=== PATIENT | female | born 1990 | race Caucasian/White ===

== ENCOUNTER 2022-03-18 13:03 | Outpatient (CLI) | payer OTHER, SELFPAY ==
--- NOTE | 2022-03-18 13:00 | CRLHL7_ITS ---
For Patients: As a result of the Century Cures Act, medical imaging exams and procedure reports are released immediately into your electronic medical record. You may view this report before your referring provider. If you have questions, please contact your health care provider. INDICATION: First trimester scan, establish dates. COMPARISON: None. TECHNIQUE: Real-time ulloa-scale imaging of the pelvis was performed. FINDINGS: Sonographic imaging demonstrates a single living intrauterine gestation. The embryo demonstrates a regular cardiac rate measuring 176 beats per minute. The embryo`s crown-rump length measurement of 2.3 cm corresponds to a gestational age of 9 weeks 0 days with a sonographic due date of 10/21/2022. There is a normal-appearing yolk sac. There are no gross abnormalities noted within the embryo at this early state of development. The gestational sac has a normal appearance. There is no evidence of a perigestational hemorrhage. The amount of fluid within the sac appears appropriate for gestational age. The cervix is closed. The myometrium appears normal. Small right paraovarian cyst is present measuring 1.6 x 1.5 x 1.5 cm. Left ovarian cyst is present measuring 5.6 x 4.1 x 4.9 cm. There are no suspicious fluid collections noted in the cul-de-sac. IMPRESSION: Single living intrauterine with sonographic gestational age 9 weeks 0 days and sonographic due date 10/21/2022. Dictated by Rob Campos MD @ 03/18/2022 1:58:33 PM (Electronically Signed)
== END 2022-03-18 13:04 | disposition home or self-care (01) ==
LOC: US 13:04
PROVIDERS: Visit Provider Advanced Practice Midwife
DX: Z34.91 Encounter for supervision of normal pregnancy, unspecified, first trimester (principal); O20.9 Hemorrhage in early pregnancy, unspecified; Z3A.09 9 weeks gestation of pregnancy
CPT/HCPCS: 76801; 76817; 86592; 86703; 86762; 86787; 86803; 86850; 86900; 86901; 87086; 87340; 87491; 87591

== ENCOUNTER 2022-04-15 16:09 | Outpatient (CLI) | payer OTHER, SELFPAY ==
--- NOTE | 2022-04-15 16:00 | CRLHL7_ITS ---
For Patients: As a result of the Century Cures Act, medical imaging exams and procedure reports are released immediately into your electronic medical record. You may view this report before your referring provider. If you have questions, please contact your health care provider. CLINICAL HISTORY: First trimester screening. TECHNIQUE: Real time ulloa scale imaging of the fetus was performed using a transabdominal approach. FINDINGS: Sonographic imaging demonstrates a single living intrauterine gestation. The fetus demonstrates a regular cardiac rate measuring 167 beats per minute. The crown rump length measurement of 7.7 cm corresponds to a gestation of 13 weeks 5 days. A nuchal translucency measurement of 2.1 mm was obtained for screening purposes. IMPRESSION: Nuchal translucency measurement obtained for first trimester screen. Dictated by Rob Campos MD @ 04/16/2022 9:48:08 AM (Electronically Signed)
== END 2022-04-15 16:10 | disposition home or self-care (01) ==
PROVIDERS: Visit Provider Obstetrics & Gynecology
DX: Z34.91 Encounter for supervision of normal pregnancy, unspecified, first trimester (principal); Z3A.12 12 weeks gestation of pregnancy
CPT/HCPCS: 36415; 76801; 76813; 84163; 84702

== ENCOUNTER 2022-06-13 13:57 | Outpatient (CLI) | payer OTHER, SELFPAY ==
--- NOTE | 2022-06-13 14:00 | CRLHL7_ITS ---
For Patients: As a result of the Century Cures Act, medical imaging exams and procedure reports are released immediately into your electronic medical record. You may view this report before your referring provider. If you have questions, please contact your health care provider. INDICATION: Evaluate anatomy. COMPARISON: 04/15/2022, 03/18/2022 TECHNIQUE: Real time ulloa scale imaging of the fetus was performed as well as color Doppler analysis of the umbilical vessels. FINDINGS: Sonographic imaging demonstrates a single living intrauterine gestation. Fetus demonstrates a regular cardiac rate of 147 beats per minute. Fetus has a transverse position, head maternal right. The placenta lies anteriorly without evidence of placenta previa. The head of the placenta is located 9.2 cm from the internal cervical os. Amniotic fluid volume appears normal. Single deepest vertical pocket: 5.8 cm. The cervix is closed and measures 4.9 cm in length. The composite ultrasound gestational age is calculated at 22 weeks 3 days with an estimated sonographic due date of 10/14/2022. The estimated weight is 516 grams which lies at the greater than 97th %. The following biometric measurements were obtained: Biparietal diameter: 5.3 cm/22 weeks 0 days 79th% Head circumference: 19.9 cm/22 weeks 1 day 80th% Abdominal circumference: 18.7 cm/23 weeks 3 days 97th% Femur length: 3.7 cm/21 weeks 4 days 58th% The HC/AC ratio measures: 1.06 range (1.05-1.22) On anatomic survey, there is a normal appearance of the cerebral ventricles, cavum septi pellucidi, cisterna magna and cerebellum. The nose, lips, and facial profile appear normal. The cervical, thoracic and lumbar spine are well visualized and appear normal. There is a normal four-chamber heart view and the left and right ventricular outflow tracts appear normal. The diaphragm and stomach appear normal. The kidneys and bladder also appear normal. There is a normal three-vessel cord and cord insertion site. The four extremities appear normal. IMPRESSION: Sonographic gestational age 22 weeks 3 days and sonographic due date 10/14/2022. Sonographic age 9 days ahead of the clinical age. Estimated weight greater than 97th percentile. Abdominal circumference 97th percentile. No intrinsic abnormalities noted on anatomic survey. Dictated by Rob Campos MD @ 06/14/2022 10:11:30 AM (Electronically Signed)
== END 2022-06-13 13:58 | disposition home or self-care (01) ==
LOC: US 13:58
PROVIDERS: Visit Provider Obstetrics & Gynecology
DX: Z34.92 Encounter for supervision of normal pregnancy, unspecified, second trimester (principal); Z3A.21 21 weeks gestation of pregnancy
CPT/HCPCS: 76805

== ENCOUNTER 2022-08-29 10:08 | Outpatient (CLI) | payer OTHER, SELFPAY ==
--- NOTE | 2022-08-29 10:15 | CRLHL7_ITS ---
For Patients: As a result of the Cures Act, medical imaging exams and procedure reports are released immediately into your electronic medical record. You may view this report before your referring provider. If you have questions, please contact your health care provider. INDICATION: Third trimester scan, evaluate growth. COMPARISON: June 13, 2022 TECHNIQUE: Real time ulloa scale imaging of the fetus was performed. FINDINGS: Sonographic imaging demonstrates a single living intrauterine gestation. Fetus demonstrates a regular cardiac rate of 145 beats per minute. Fetus has a vertex orientation and longitudinal lie. The placenta lies anteriorly without evidence of placenta previa. Amniotic fluid volume appears normal. Single deepest vertical pocket: 4.8 cm. The composite ultrasound gestational age is calculated at 33 weeks 2 days. The estimated weight is 2296 which lies at the 89 percentile. The biometric indices all lie within normal range. The HC/AC ratio measures 0.97 range (0.96-1.11). IMPRESSION: Single living intrauterine in vertex presentation. Composite calculated ultrasound age 33 weeks 2 days with a sonographic due date of October 15, 2022. Appropriate growth and maturation in the interval. Dictated by Az Barton MD @ 08/29/2022 11:19:02 AM (Electronically Signed)
== END 2022-08-29 10:09 | disposition home or self-care (01) ==
LOC: US 10:08
PROVIDERS: Visit Provider Obstetrics & Gynecology
DX: Z34.93 Encounter for supervision of normal pregnancy, unspecified, third trimester (principal); Z3A.33 33 weeks gestation of pregnancy
CPT/HCPCS: 76816

== ENCOUNTER 2022-09-27 10:47 | Outpatient (CLI) | payer OTHER, SELFPAY ==
[2022-09-28 18:55] LABS: Strep B DNA Probe NEGATIVE (Negative)
[2022-09-28 22:12] LABS: Strep B Pen/Amox Allergy No
== END 2022-09-27 10:48 | disposition home or self-care (01) ==
LOC: NFLDREF 10:47
PROVIDERS: Visit Provider Obstetrics & Gynecology
DX: Z34.93 Encounter for supervision of normal pregnancy, unspecified, third trimester (principal); Z3A.37 37 weeks gestation of pregnancy
CPT/HCPCS: 87081; 87653

== ENCOUNTER 2022-10-23 21:45 | Inpatient (IN) | payer OTHER, SELFPAY ==
[2022-10-23] VITALS (16 sets, daily range): BP systolic 112–154; BP diastolic 62–92; PULSE 94–127; RESP 16; TEMP 36.9; O2SAT 98–100; BMI 28.0
--- NOTE | 2022-10-23 22:21 | P.LDBA_ITS ---
Subjective History of Present Illness Date Seen: 10/23/22 Narrative: Patient is being admitted to Labor and Delivery for spontaneous onset of labor. She is a 32 year old at 40 weeks gestation. Her full history and physical was dictated by Dr. Oconnor on 10/03/2022. Please see this for details. Specific Issues/Plans -[place]. Children: Janeth Sandoval. Baby: Boy! Name? Niko or Tiburcio 1. Blood Type O negative * Rhogam 28 weeks: Given on 08/01/2022 2. Hx of GHTN w/ 1st , no meds or magnesium (per records) * Recommended daily ASA 81mg to start at 12 weeks. 3. Nausea and vomiting. Used Vit B6 and Unisom * Improved by 12 weeks gestation. 4. 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 5. EFW >97% at 21 week anatomy scan * Repeat US for EFW at 32 weeks: BPD 42%, HC 46%, AC >97%, FL 50%. EFW 89%. Vertex * History of macrosomia, 1st baby 9 lb 6. Anemia: 08/01/22 HGB: 10.2, Ferrous sulfate ordered Repeat at 34 weeks: 10.6 7. Last Pap 04/07/2017 WNL. No HPV collected at that time. No pap at her first visit. * Pap with HPV Co-testing at her 6 week visit Flu: Declines Covid: Thinks she had COVID in the 1st trimester b/c it was much worse than a regular cold but did not get tested. Tdap: Declined Rhogam: 08/01/22 OB - Problem Based A/P Additional Plan (1) Spontaneous onset of labor: Status: Acute Plan Epidural p.r.n. Delivery/Labor/Induction Plan Plan: expectant management OB Result Labs Blood Type: 0 (-) negative Rubella: immune RPR/VDLR: nonreactive GBS Status: negative HBsAG: negative OB Exam Physical Exam Vital signs: Temp Pulse Resp BP Pulse Ox 98.4 F 101 H 16 117/83 100 10/23/22 19:25 10/23/22 19:25 10/23/22 19:25 10/23/22 19:25 10/23/22 19:23 Detailed Labor and Delivery Exam Patient Gravid: Yes Dilation (cm): 4 Effacement (%): 60 Cervix position: mid Consistency: soft Contraction Frequency: 3-4 minutes Contraction intensity: Strong/Firm Fetus (Single) Station: -2 Amniotic Membrane Status: intact Heart Rate Baseline: 125 Monitor Accelerations: Absent Monitor Decelerations: Early Alf Variability: Moderate (6-25)
[2022-10-23] MEDS: LACTATED RINGERS 1000 ML 1,000 ML 1125 ML IV (22:44)
[2022-10-23 22:55] LABS: Basophils Absolute Auto 0.02 K/uL (0.00-0.30); Basophils Percent Auto 0.3 % (0.0-3.0); Eosinophils Absolute Auto 0.09 K/uL (0.00-0.50); Eosinophils Percent Auto 1.2 % (0.0-7.0); Hematocrit 35.7 % (33.0-51.0); Hemoglobin* 11.7 gm/dL (12.0-16.0); Immature Granulocytes Abs Auto 0.11 K/uL (0.00-0.30); Immature Granulocytes Pct Auto 1.5 %; Lymphocytes Absolute Auto 1.94 K/uL (0.90-2.90); Lymphocytes Percent Auto 26.4 % (20-44); Mean Corpuscular HGB Conc 33 gm/dL (32-36); Mean Corpuscular Hemoglobin 30 pg (26-34); Mean Corpuscular Volume 91 fL (80-100); Monocytes Percent Auto 8.3 % (0.0-11.0); Neutrophils Absolute Auto 4.58 K/uL (1.7-7.0); Neutrophils Percent Auto 62.3 % (42.0-72.0); Platelet Count* 179 K/uL (140-440); RDW Coefficient of Variation % 13.9 % (11.5-15.5); Red Blood Count 3.91 m/uL (4.00-5.20); White Blood Count* 7.35 K/uL (4.50-11.00)
[2022-10-23 22:58] LABS: Slide Review Reflex No
[2022-10-23] MEDS: LIDOCAINE 2% (PF) 5 ML VIAL EPIDURAL (23:02)
[2022-10-23] MEDS: ROPIVACAINE 0.2% 100 ml 100 ML 12 MG EPIDURAL (23:09)
--- NOTE | 2022-10-23 23:11 | PM.ANBPRC ---
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 (ICD-10) Infection due to Staphylococcus aureus ?A49.01 - Methicillin susceptible Staphylococcus aureus infection, unspecified site (ICD-10) Eczema ?L30.9 - Dermatitis, unspecified (ICD-10) Surgical History (Updated 03/18/22 @ 14:48 by Cecile Blankenship CNM) No history of previous surgery Family History (Updated 03/18/22 @ 14:51 by Cecile Blankenship CNM) Paternal Grandmother Diabetes Mother contractions Social History (Updated 03/19/22 @ 13:56 by Cecile Blankenship CNM) Narrative: SOCIAL Education: associates in law 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 Lives with: and kids Pets: none Abuse: Denies past/present Special Diet: Denies Ok with a blood transfusion: yes Culture or samaritan beliefs: denies RISK FACTORS Exercise Times/wk: none in the past year d/t illness Depression/Anxiety: denies LILIANA: 0 PHQ 9: 6 Seat Belt Use: Routinely Smoking: Denies past/present Alcohol/day: Denies while Caffeine: occasional Drug Use: Denies past/present Chicken Pox: Yes as a child MRSA: Denies Are you following a diet prescribed by a doctor: No Are you following a special diet: No Highest level of school completed/degree received: Bachelor's degree Physical activity type: none Smoking Status: Never smoker Second hand tobacco smoke exposure: No Non-prescribed substance use: denies use Little interest or pleasure in doing things: not at all Feeling down, depressed, or hopeless: not at all service: No Meds Home Medications and Allergies Home Medications Medication Instructions Recorded Confirmed Type prenat.vits,harriett,lvu-xrga-cyrea 1 tab PO QDAY 03/18/22 10/23/22 History Allergies Allergy/AdvReac Type Severity Reaction Status Date / Time azithromycin Allergy Intermediate nausea/vomi Verified 10/23/22 19:48 ting Sulfa (Sulfonamide Allergy Intermediate Hives Verified 10/23/22 19:48 Antibiotics) mupirocin Allergy Unknown Verified 10/23/22 19:48 Results Labs Labs: Laboratory Results - last 24 hr 10/23/22 22:40 WBC 7.35 RBC 3.91 L Hgb 11.7 L Hct 35.7 MCV 91 MCH 30 MCHC 33 RDW Coeff of Natasha 13.9 Plt Count 179 Neut % (Auto) 62.3 Lymph % (Auto) 26.4 Carter % (Auto) 8.3 Eos % (Auto) 1.2 Baso % (Auto) 0.3 Neut # (Auto) 4.58 Lymph # (Auto) 1.94 Carter # (Auto) 0.60 Eos # (Auto) 0.09 Baso # (Auto) 0.02 Abs Immat Gran (auto) 0.11 Imm/Tot Granulo (auto) 1.5 Vital Signs Vital Signs: Last Vital Signs Temp 98.4 F 10/23/22 19:25 Pulse 108 H 10/23/22 23:10 Resp 16 10/23/22 19:25 BP 139/83 10/23/22 23:10 Pulse Ox 100 10/23/22 23:03 Weight: 71.985 kg Height: 160.02 cm Anesthesia Procedures Intrathecal Patient Location: OB Start Time: 22:20 Stop Time: 23:11 Start Date: 10/23/22 Stop Date: 10/23/22 Reason for Block: procedure for pain Patient Position: sitting Performed By: Dontrell Crump Preanesthetic Checklist: IV checked, site marked, risks and benefits discussed, surgical consent, monitors and equipment checked, pre-op evaluation, timeout performed and anesthesia consent Monitoring: blood pressure monitoring, continuous pulse oximetry and heart rate Approach: midline Vertebral Space: lumbar (1-5) Needle Type: Sprotte Injection Technique: single-shot Needle gauge: 25 Needle Length (cm): 10 cm
--- NOTE | 2022-10-23 23:32 | PM.ANBPRC ---
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 - Cystic fibrosis carrier (ICD-10) Infection due to Staphylococcus aureus ?A49.01 - Methicillin susceptible Staphylococcus aureus infection, unspecified site (ICD-10) Eczema ?L30.9 - Dermatitis, unspecified (ICD-10) Surgical History (Updated 03/18/22 @ 14:48 by Cecile Blankenship CNM) No history of previous surgery Family History (Updated 03/18/22 @ 14:51 by Cecile Blankenship CNM) Paternal Grandmother Diabetes Mother contractions Social History (Updated 03/19/22 @ 13:56 by Cecile Blankenship CNM) Narrative: SOCIAL Education: associates in law 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 Lives with: and kids Pets: none Abuse: Denies past/present Special Diet: Denies Ok with a blood transfusion: yes Culture or episcopalian beliefs: denies RISK FACTORS Exercise Times/wk: none in the past year d/t illness Depression/Anxiety: denies LILIANA: 0 PHQ 9: 6 Seat Belt Use: Routinely Smoking: Denies past/present Alcohol/day: Denies while Caffeine: occasional Drug Use: Denies past/present Chicken Pox: Yes as a child MRSA: Denies What is your current living situation?: I presently have a place to live Problems where you live: no known problems In the past 12 months, utilities in danger of being shut off: no In the past 12 mos, have been you worried that your food would run out before you had money to buy more?: never true In the past 12 mos, the food you bought just didn't last and you didn't have money to buy more?: never true Are you following a diet prescribed by a doctor: No Are you following a special diet: No Highest level of school completed/degree received: Bachelor's degree Physical activity type: none Smoking Status: Never smoker Second hand tobacco smoke exposure: No Non-prescribed substance use: denies use How often does anyone, including family, friends and others, physically hurt you: never How often does anyone, including family, friends and others, insult or talk down to you: never How often does anyone, including family, friends and others, threaten you with harm: never How often does anyone, including family, friends and others, scream or curse at you: never Little interest or pleasure in doing things: not at all Feeling down, depressed, or hopeless: not at all service: No Meds Home Medications and Allergies Home Medications Medication Instructions Recorded Confirmed Type prenat.vits,harriett,jup-maes-ggqsx 1 tab PO QDAY 03/18/22 10/23/22 History Allergies Allergy/AdvReac Type Severity Reaction Status Date / Time azithromycin Allergy Intermediate nausea/vomi Verified 10/23/22 19:48 ting Sulfa (Sulfonamide Allergy Intermediate Hives Verified 10/23/22 19:48 Antibiotics) mupirocin Allergy Unknown Verified 10/23/22 19:48 Results Labs Labs: Laboratory Results - last 24 hr 10/23/22 22:40 WBC 7.35 RBC 3.91 L Hgb 11.7 L Hct 35.7 MCV 91 MCH 30 MCHC 33 RDW Coeff of Natasha 13.9 Plt Count 179 Neut % (Auto) 62.3 Lymph % (Auto) 26.4 [place] % (Auto) 8.3 Eos % (Auto) 1.2 Baso % (Auto) 0.3 Neut # (Auto) 4.58 Lymph # (Auto) 1.94 [place] # (Auto) 0.60 Eos # (Auto) 0.09 Baso # (Auto) 0.02 Abs Immat Gran (auto) 0.11 Imm/Tot Granulo (auto) 1.5 Vital Signs Vital Signs: Last Vital Signs Temp 98.4 F 10/23/22 19:25 Pulse 102 H 10/23/22 23:26 Resp 16 10/23/22 19:25 BP 131/86 10/23/22 23:26 Pulse Ox 100 10/23/22 23:03 Weight: 71.985 kg Height: 160.02 cm Anesthesia Procedures Epidural Insertion Patient Location: OB Start Time: 22:15 Stop Time: 23:10 Start Date: 10/23/22 Stop Date: 10/23/22 Reason for Block: procedure for pain Patient Position: sitting Performed By: Dontrell Crump Preanesthetic Checklist: IV checked, risks and benefits discussed, surgical consent, monitors and equipment checked, pre-op evaluation, timeout performed and anesthesia consent Prep: chlorhexidine gluconate Monitoring: blood pressure monitoring, continuous pulse oximetry and heart rate Approach: midline Vertebral Space: lumbar (1-5) Needle Type: Tuohy needle Injection Technique: continuous catheter Needle gauge: 17 Needle Length (cm): 10 cm Needle Insertion Depth (cm): 7 Catheter Gauge: 19 Catheter Type: multi-orifice Catheter at skin depth (cm): 13 Test Dose Result: negative and lidocaine 1.5% with epinephrine 1 to 200,000
[2022-10-24] VITALS (22 sets, daily range): BP systolic 101–147; BP diastolic 56–81; PULSE 88–123; RESP 16–18; TEMP 36.9–37.1; O2SAT 96–97
[2022-10-24] MEDS: OXYTOCIN 30 unit/500 ML in NS 30 UNIT/500 ML BAG 225 UNIT IVPB (03:00)
--- NOTE | 2022-10-24 03:24 | W.PM.OBVAGDE ---
OB Procedure Vag Delivery Mother Details Mother Details: The patient is a 32 year-old, 3, Para 2, admitted on 10/23/22 at 40 0/7 Days gestation in spontaneous labor. : 2 Para: 2 Weeks Gestation: 40 Admission Date: 10/23/22 Additional Details Amniotic Membrane Status: SROM Amniotic Membrane Rupture Date: 10/24/22 Amniotic Membrane Rupture Time: 02:15 Amniotic Membrane Fluid Description: Clear Analgesia/Anesthesia Type: Epidural Waterbirth: No Pitcoin: No Intrapartal Events: None Labor Onset: 21:00 Complete: 02:45 Pushin:45 Heart: heart tones during second stage were category 2. Delivery Details Delivery Date: 10/24/22 Delivery Time: 02:51 Route of delivery: Infant Gender: Male Infant Viability: Alive; Heart Rate Present Position at Delivery: OA Delivery Details: Delivered over intact perineum via spontaneous vaginal delivery. was placed on maternal abdomen.? Cord was clamped and cut after a 30-60 second delay. Nose and mouth were bulb suctioned.? Infant weight pending. 1 Minute Interval Total Score: 7 5 Minute Interval Total Score: 9 Additional Details Shoulder Dystocia: No Placenta Delivery Time: 02:59 Placental Delivery Description: Spontaneous (with trailing membranes) Delivery repair: Vicryl Procedure Done: Global Blood Loss: 150 Laceration: Perineal - 2nd Degree Blood Loss Measurement Type: QBL Bakri Used: No Sponge/Need Count Correct: Yes Cord Vessel Description: 3 Vessels Event Summary Status: Mother and were stable after delivery. Disposition: floor
[2022-10-24] MEDS: DOCUSATE SODIUM 100 MG CAPSULE PO (08:51)
[2022-10-24] MEDS: IBUPROFEN 600 MG TABLET PO (10:13)
[2022-10-25 01:30] VITALS: BP 127/72; PULSE 73; RESP 16; TEMP 37.1; O2SAT 98
[2022-10-25 06:52] LABS: Hemoglobin* 10.6 gm/dL (12.0-16.0)
--- NOTE | 2022-10-25 08:41 | P.DS_ITS ---
DS: Providers Provider Time Seen by Provider: 08:41 Date Seen: 10/25/22 Date of admission: 10/23/22 21:45 Primary care physician: Not a Local Provider Admitting Clinician: Saira Mittal MD Attending Physician on discharge: Saira Mittal MD Date of Discharge: 10/25/22 DS: Diagnosis Discharge Diagnosis (1) NVD (normal vaginal delivery): Status: Acute (2) Lactating mother: Status: Acute Exam Narrative: Exam Narrative: VSS, afebrile GENERAL APPEARANCE: ?normal affect, alert, no distress MOOD: ?appropriate HEENT: normocephalic, neck supple, full ROM CHEST: ?Symmetrical chest wall movement. ?Normal respiratory effort. ?Clear to auscultation HEART: ?regular rate and rhythm ABDOMEN: ?soft, non-tender. Uterine fundus is firm, at Umbilicus, Midline and is appropriate for the stage of recovery. ?Bowel sounds present. PERINEUM: ?mild edema and bruising of the perineum, there is a 2nd degree laceration that is healing well. EXTREMITIES: ?normal and trace edema Const: Vital Signs, click to edit/add: Vital Signs - 24 hr 10/24/22 08:50 10/24/22 14:05 10/24/22 16:55 Temperature 98.7 F 98.6 F 98.4 F Pulse Rate [Pulse Oximeter] 96 105 H 89 Respiratory Rate 16 16 16 Blood Pressure [Ri ght Arm] 113/71 118/79 109/70 Pulse Oximetry 97 96 96 Oxygen Delivery Me thod Room Air Room Air Room Air 10/24/22 21:00 10/25/22 01:30 Temperature 98.8 F 98.8 F Pulse Rate [Pulse Oximeter] 104 H 73 Respiratory Rate 18 16 Blood Pressure [Ri ght Arm] 119/77 127/72 Pulse Oximetry 97 98 Oxygen Delivery Me thod Room Air Room Air Documenting provider has reviewed patient's vital signs: yes OB - DS: Summary Hospital Course Hospital Course: Juanita is a 32 y.o. G 3 P 3 who was admitted to [facility] for labor. ?She had an uncomplicated NVD The patient feels well. ?The pain is well controlled with current medications. ?She has no new complaints. ?She is breast feeding and reports things are going well.? the patient has done well.? Vitals have been stable.? She has remained afebrile.? Has a good appetite, is tolerating a general diet. ?She is voiding without difficulty.? She is passing gas and has not had a bowel movement.? She is ambulating and denies any dizziness.? Has Small amount of rubra lochia. Problems: none plan: Discharge home with baby. Follow up in 2 weeks and 6 weeks. , may follow up with if needed Peripartum Data delivery method: Vaginal Laceration description: Perineal - 2nd Degree complications: none Infant Gender: Male Discharge Plan: Home Status at Discharge Functional status at discharge: independent ambulation Overall status at discharge: patient is progressing back to baseline Time Spent with Patient Time attestation: Total time spent providing and/or coordinating discharge services: Time spent: Less than 30 minutes Discharge Plan Discharge Disposition: Home, Self-Care Date of Admission: 10/23/22 21:45 Attending Provider on Discharge: Jennifer Ramos Primary Care Provider: Provider,Not a Local Condition: Stable Anticipated Discharge Date/Time: 10/25/22 11:00 Discharge Medications: New docusate sodium 100 mg Capsule 100 mg PO BID PRNQty: 100 0RF Rx Instructions: Take 1 cap 1-2 times a day as needed for constipation ibuprofen 600 mg Tablet 600 mg PO Q6H PRNQty: 60 0RF Continued prenat.vits,harriett,rmy-znnz-zbosc Tablet 1 tab PO QDAY Discontinued ferrous sulfate 325 mg (65 mg iron) tablet 325 mg PO Q OTHER DAY Qty: 30 3RF Discharge Orders: Discharge Order (Routine); Ordered 10/25/22 Ordered By: Jennifer Ramos Patient Education: OB Over the Counter Medication Information, OB Vaginal/Breast Feeding Additional Instructions: Follow up in 2 weeks and 6 weeks in the clinic. Activity Level: Activity as Tolerated Follow Up Appointments: Provider,Not a Local [Primary Care Provider] - Forms: [employer] Info Instructions
[2022-10-25 10:33] VITALS: BP 113/76; PULSE 97; RESP 16; TEMP 37; O2SAT 97
[2022-10-25] MEDS: IBUPROFEN 600 MG TABLET PO (10:34)
[2022-10-25] MEDS: DOCUSATE SODIUM 100 MG CAPSULE PO (10:35)
[2022-10-25 10:37] VITALS: BP 113/76; PULSE 97; RESP 16; TEMP 37; O2SAT 97
== END 2022-10-25 13:35 | disposition home or self-care (01) | DRG 807 ==
LOC: OB OUT 22:07 → OB 22:07
PROVIDERS: Admitting Provider Obstetrics & Gynecology; Visit Provider Obstetrics & Gynecology
DX: O70.1 Second degree perineal laceration during delivery (principal); Z37.0 Single live birth; Z3A.40 40 weeks gestation of pregnancy
CPT/HCPCS: 01967; 36415; 85018; 85025; 85461; 86850; 86900; 86901; A9270; J2371; J2791; J2795; J7120; S0020